=== PATIENT | male | born 1960 | race Hispanic/Latino ===

== ENCOUNTER 2019-06-01 14:38 | Emergency (ER) | payer OTHER ==
[~2019-06-01] VITALS: Ht 170.2 cm; Wt 89.0 kg
[2019-06-01] MEDS ORDERED: PERCOCET 5MG/325MG TAB PO ONE ×2 (16:00→18:45)
[2019-06-01] MEDS ORDERED: ACETAMINOPHEN TAB 650MG DOSE (2X325MG) PO ONE (16:00)
--- NOTE | 2019-06-01 16:11 | REP ---
Clinical: Lacerations. Technique: AP and lateral views of the left forearm. Findings: Osseous structures and joint spaces are intact and normal. Surrounding soft tissues without subcutaneous emphysema or foreign body. Impression: Normal left forearm radiographs. Electronically Signed by Matheus Dior MD 06/01/2019 04:03 P
--- NOTE | 2019-06-01 16:12 | REP ---
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 Findings: The osseous structures and joint spaces are intact and normal. There is no evidence for acute fracture or dislocation. Surrounding soft tissues are unremarkable. No subcutaneous emphysema or radiodense foreign body. Impression: No acute fracture or dislocation. Electronically Signed by Matheus Dior MD 06/01/2019 04:04 P
[2019-06-01] MEDS ORDERED: LIDOCAINE 2% MDV 20 ML VIAL SC ONE (16:45)
[2019-06-01] MEDS ORDERED: CEPHALEXIN 500 MG CAP PO ONE (18:30)
[2019-06-01] MEDS ORDERED: NEOSPORIN TOP OINT 15GM TOP PRN (18:30)
[2019-06-01] MEDS ORDERED: KEFL500C17 PO (18:45)
[2019-06-01 19:04] VITALS: BP 160/89
== END 2019-06-01 19:06 | disposition home or self-care (01) ==
LOC: M ED 14:38
DX: S51.812A Laceration without foreign body of left forearm, initial encounter (principal); W31.89XA Contact with other specified machinery, initial encounter; Y93.9 Activity, unspecified; Y92.9 Unspecified place or not applicable; Y99.9 Unspecified external cause status; R73.03 Prediabetes